=== PATIENT | female | born 1990 | race Caucasian/White ===

== ENCOUNTER 2017-02-25 03:00 | Emergency (ER) | payer SELFPAY ==
[2015-07-13 18:31] VITALS: BMI 24.7
--- NOTE | 2017-02-25 03:53 | OBDCSUM ---
Datetime: 02/25/2017 03:51 Discharged to, Provider: Home Follow up at, Provider: 03/01 Follow up in weeks, Provider: alison Discharge Comment, Provider: c/s schuled on saturday03/01/17 po hyration lbor ins f/u on saturday Discharge Diagnosis Prov Other: 38weeks nst toothace
--- NOTE | 2017-02-25 03:53 | OBHP ---
Datetime: 02/25/2017 03:47 IP Adm Impression: Term, intrauterine IP Chief Complaint Other: c/o toothache and vomiting IP Admit Plan: Discharge home Admit Comment, IP Provider: at 38+weeks came with c/o toothace started 1 wek go got worse tonig ht, pain going to head and neck and vomited x 3.no ctxs, vb, lof,+fm. obhx 1 x c/s pmh den med pnv all nkda psh c/s soch de ve closed a/p at 38+weeks nst/toothace send to er for evaluation c/s schuled on saturday03/01/17 po hyration lbor ins f/u on saturday Pelvic Type - PN: Adequate Extremities - PN: Normal Abdomen - PN: Normal Back - PN: Normal Breast - PN: Normal Lungs - PN: Normal Heart - PN: Normal Thyroid - PN: Normal Neurologic - PN: Normal HEENT - PN: Normal General - PN: Normal FHR - Baseline A Provider: 130 Contraction Comments Provider: occ Vital Signs Provider: Reviewed; Within Normal Limits NICHD Variability Prov Fetus A: Moderate 6-25bpm NICHD Accel Fetus A IP Provider: 15X15 FHR Category Provider Fetus A: Category I Dilatation, Provider: 0 Effacement, Provider: 0 Station, Provider: -3 Genitourinary Exam: Normal DTRs - PN: Normal
[2017-02-25] MEDS ORDERED: Oxycodone/Acetaminophen 5/325 mg Tab PO STA (04:24)
[2017-02-25] MEDS ORDERED: Oxycodone/Acetaminophen 5/325 mg Tab ONE (04:30)
--- NOTE | 2017-02-25 04:30 | C.PDOC ---
History Of Present Illness Pt is 39 weeks presents to ER with c/o of left sided toothache since last night radiating to her left ear. Pt took 1 tylenol PO without relief. Denies headache, dizziness, URI sx, fever, trauma, or recent dental work. Pt denies any OB c/o Time Seen by Provider: 02/25/17 04:17 Chief Complaint (Nursing): Headache History/Exam Limitations: no limitations Onset/Duration Of Symptoms: Persistent Current Symptoms Are (Timing): Still Present Severity: Moderate Preceeding Symptoms: None Past Medical History Vital Signs: Last Vital Signs Temp 98 F 02/25/17 04:03 Pulse 97 H 02/25/17 04:03 Resp 20 02/25/17 04:03 BP 109/75 02/25/17 04:03 Pulse Ox 99 02/25/17 04:42 - Medical History PMH: No Chronic Diseases - [facility] Procedures EXTRACTION OF POC, LOW CERVICAL, OPEN APPROACH (07/13/15) INTRODUCE OF OTH THERAP SUBST INTO FEM REPROD, VIA OPENING (07/13/15) Family History: States: Unknown Family Hx - Social History Hx Alcohol Use: No Hx Substance Use: No Review Of Systems Constitutional: Negative for: Fever ENT: Positive for: Ear Pain (Lt), Other (left lower toothache). Negative for: Throat Pain Respiratory: Negative for: Shortness of Breath Gastrointestinal: Negative for: Abdominal Pain Musculoskeletal: Negative for: Neck Pain Neurological: Negative for: Weakness Physical Exam - Physical Exam Appears: Well, Non-toxic, In Acute Distress (moderate painful distress ) Skin: Normal Color Head: Atraumatic Eye(s): bilateral: Normal Inspection, PERRL Ear(s): Bilateral: Normal Oral Mucosa: Moist Lips: Normal Appearing, No Swelling Teeth: No Caries, Tender To Palpation (Left lower posterior molar, no erythema ) , No Loose Gingiva: Normal Appearing, No Erythema, No Swelling Throat: Normal, No Erythema Neck: Normal, Supple Cardiovascular: Rhythm Regular Respiratory: Normal Breath Sounds Gastrointestinal/Abdominal: Other (gravid, NT) Neurological/Psych: Oriented x3 Gait: Steady ED Course And Treatment O2 Sat by Pulse Oximetry: 99 Pulse Ox Interpretation: Normal Progress Note: Percocet PO given- Pt tolerated pain meds well, VSS. Advised to continue with 2 tabs of tylenol extra strength at home and to follow up with PMD / Ob tomorrow as needed. Pt was seen and cleared previously by pipe connector OB in L&D Reevaluation Time: 04:46 Reassessment Condition: Improved Disposition Counseled Patient/Family Regarding: Diagnosis, Need For Followup - Disposition Referrals: ABATTOIR SUPERVISOR, PMD [Other] Disposition: HOME/ ROUTINE Disposition Time: 04:40 Condition: STABLE Additional Instructions: Continue tylenol extra strenght every 6 hrs Avoid very cold or hot drinls Follow up with your ACCOUNTS RECEIVABLE CLERK Return to ER if fever, facial swelling, severe headache or worse Instructions: Toothache (ED) - Clinical Impression Clinical Impression: Pain, dental, Pain of molar
[2017-02-25 04:52] VITALS: BP 111/80; PULSE 94; RESP 18; TEMP 97.5; O2SAT 100
== END 2017-02-25 04:52 | disposition home or self-care (01) ==
LOC: C.EROB 03:00 → C.ER 03:00
DX: K08.89 Other specified disorders of teeth and supporting structures (principal); O26.893 Other specified pregnancy related conditions, third trimester; Z3A.38 38 weeks gestation of pregnancy

== ENCOUNTER 2017-02-27 12:42 | Inpatient (IN) | payer MEDICAID ==
--- NOTE | 2017-02-27 13:25 | OBHP ---
Datetime: 02/27/2017 13:21 IP Adm Impression: Term, intrauterine Admit Comment, IP Provider: at 38.4weks came with c/o leakge of yellowish discharge from 6 in t he morning x 3 and back pain, no ctxs,vb,+fm. obhx 1 x c/s pmh den med pnv all nkda psh c/s soch de sse neg pooling,neg nitrazine yellowih disc a/p r/o rom pt was told to walk arround with pad. will revalutae Pelvic Type - PN: Adequate Extremities - PN: Normal Abdomen - PN: Normal Back - PN: Normal Breast - PN: Not Done Lungs - PN: Normal Heart - PN: Normal Thyroid - PN: Not Done Neurologic - PN: Normal HEENT - PN: Normal General - PN: Normal FHR - Baseline A Provider: 130 Membranes, Provider: Intact Pool Provider: Negative Nitrazine Provider: Negative EGA AdmitDate IP: 38.4 Vital Signs Provider: Reviewed; Within Normal Limits IP Chief Complaint: Suspected ruptured membranes NICHD Variability Prov Fetus A: Moderate 6-25bpm NICHD Accel Fetus A IP Provider: 15X15 FHR Category Provider Fetus A: Category I Dilatation, Provider: 0 Effacement, Provider: 0 Station, Provider: -3 Genitourinary Exam: Normal DTRs - PN: Normal
[2017-02-27 14:31] VITALS: BMI 28.1
[2017-02-27] MEDS ORDERED: cefOXitin IV 2 gm in Dextrose 2 GM/50 ML BAG IVPB ONE ×2 (14:31→15:32)
[2017-02-27] MEDS ORDERED: Sodium Citrate/Citric Acid 15 ml Sol PO ONE (14:31)
--- NOTE | 2017-02-27 14:37 | OBADHP ---
Datetime: 02/27/2017 13:21 Admit Comment, IP Provider: at 38.4weks came with c/o leakge of yellowish discharge from 6 in t he morning x 3 and back pain, no ctxs,vb,+fm. obhx 1 x c/s pmh den med pnv all nkda psh c/s soch de sse neg pooling,neg nitrazine yellowih disc a/p r/o rom pt was told to walk arround with pad. will revalutae. after revaluate leakage of fluid. plan admit to l_d for repeat c/s npo/ivf labs anthesia aware skin abxs informed consent will be joslyn Pelvic Type - PN: Adequate Extremities - PN: Normal Abdomen - PN: Normal Back - PN: Normal Breast - PN: Not Done Lungs - PN: Normal Heart - PN: Normal Thyroid - PN: Not Done Neurologic - PN: Normal HEENT - PN: Normal General - PN: Normal FHR - Baseline A Provider: 130 Membranes, Provider: Intact Pool Provider: Negative Nitrazine Provider: Negative IP Hx Assessment: The History has been Reviewed and is Current Vital Signs Provider: Reviewed; Within Normal Limits IP Chief Complaint: Suspected ruptured membranes NICHD Variability Prov Fetus A: Moderate 6-25bpm NICHD Accel Fetus A IP Provider: 15X15 FHR Category Provider Fetus A: Category I Dilatation, Provider: 0 Effacement, Provider: 0 Station, Provider: -3 Genitourinary Exam: Normal DTRs - PN: Normal EGA AdmitDate IP: 38.4 IP Adm Impression: Term, intrauterine ; Ruptured Membranes Datetime: 02/25/2017 03:47 IP Chief Complaint Other: c/o toothache and vomiting Contraction Comments Provider: occ IP Admit Plan: Discharge home
--- NOTE | 2017-02-27 14:37 | OBHP ---
Datetime: 02/27/2017 13:21 IP Adm Impression: Term, intrauterine ; Ruptured Membranes Admit Comment, IP Provider: at 38.4weks came with c/o leakge of yellowish discharge from 6 in t he morning x 3 and back pain, no ctxs,vb,+fm. obhx 1 x c/s pmh den med pnv all nkda psh c/s soch de sse neg pooling,neg nitrazine yellowih disc a/p r/o rom pt was told to walk arround with pad. will revalutae. after revaluate leakage of fluid. plan admit to l_d for repeat c/s npo/ivf labs scout aware skin abxs informed consent will be joslyn HOLDEN Hx Assessment: The History has been Reviewed and is Current EGA AdmitDate IP: 38.4
[2017-02-27] MEDS: Lactated Ringer's 1,000 ML IV SCH (15:14)
[2017-02-27 15:22] LABS: BASO % 0.3 % (0.0-2.0); EOS # 0.1 K/uL (0.0-0.7); EOS % 0.5 % (0.0-4.0); HEMATOCRIT 39.1 % (34.0-47.0); LYMPH # 2.3 K/uL (1.0-4.3); LYMPH % 21.7 % (20.0-40.0); MEAN CELL VOLUME 86.1 fL (81.0-99.0); MEAN CORPUSCULAR HEMOGLOBIN 28.8 pg (27.0-31.0); MEAN CORPUSCULAR HGB CONC 33.4 g/dL (33.0-37.0); MEAN PLATELET VOLUME 11.2 fL (7.2-11.7); MONO # 0.5 K/uL (0.0-0.8); MONO % 4.7 % (0.0-10.0); RED CELL DISTRIBUTION WIDTH 13.8 % (11.5-14.5); WHITE BLOOD COUNT 10.6 K/uL (4.8-10.8)
[2017-02-27] MEDS ORDERED: Sodium Citrate/Citric Acid 15 ml Sol ONE (15:30)
[2017-02-27 15:33] LABS: CHLORIDE 103 mmol/L (98-107); POTASSIUM 4.1 mmol/L (3.6-5.2); SODIUM 133 mmol/L (132-148)
[2017-02-27] MEDS ORDERED: Oxytocin 20 units in LR 2,000 ML IV ONE (15:33)
[2017-02-27 15:36] LABS: BLOOD UREA NITROGEN 5 mg/dL (7-17); CARBON DIOXIDE 19 mmol/L (22-30); GFR AFRICAN-AMERICAN > 60; GLUCOSE,RANDOM 71 mg/dL (65-105)
[2017-02-27 15:37] LABS: CALCIUM 9.2 mg/dl (8.6-10.4)
[2017-02-27] MEDS ORDERED: Morphine 1 mg/ml preservative-free Inj(Duramorph) ONE (16:00)
[2017-02-27] MEDS ORDERED: ePHEDrine 50 mg/ml Inj ONE (16:18)
[2017-02-27] MEDS ORDERED: Oxytocin 10 Units/ml Inj ONE (16:23)
--- NOTE | 2017-02-27 16:50 | OBDS ---
DELIVERY PERSONNEL Delivery Doctor: Addy Orellana MD Scrub Nurse: Chanda Akins ELMER Anesthesiologist: ElanaAnthony MD MATERNAL INFORMATION Delivery Anesthesia: Spinal Provider Comments: baby deliverd in geri. end clean tubal liogation done no com LABOR SUMMARY EDC: 03/09/2017 00:00 No. Babies in Womb: 1 Attempted: No Labor Anesthesia: None LABOR INFORMATION Oxytocin: N/A Steroids Given: None Reason Steroids Not Administered: Not Applicable STAGES OF LABOR Stage 3 hrs: 0 Stage 3 min: 1 BABY A INFORMATION Infant Delivery Date/Time: 02/27/2017 16:19 Method of Delivery: Born in Route : No : N/A Forceps: N/A Vacuum Extraction: N/A Shoulder Dystocia : No SHOULDER DYSTOCIA BABY A Infant Delivery Date/Time: 02/27/2017 16:19 PRESENTATION/POSITION BABY A Presentation: Cephalic Cephalic Presentation: Vertex Vertex Position: Left Occipital Anterior Breech Presentation: N/A PLACENTA INFORMATION BABY A Placenta Delivery Time : 02/27/2017 16:20 Placenta Method of Delivery: Manual Removal Placenta Status: Delivered INFORMATION BABY A Gestational Age at Delivery: 38.4 Gestational Status: Term Infant Outcome : Liveborn Infant Condition : Stable Sex: Male IDENTIFICATION/MEDS BABY A ID Band Number: [id number] ID Band Location: Left Leg; Left Arm Sensor Applied: Yes Sensor Number: [id number] Sensor Location : Cord Clamp Vitamin K Given : Not Given Erythromycin Given: Not Given WEIGHT/LENGTH BABY A Birthweight (gms): 3200 Infant Weight (lb): 7 Weight (oz): 1 Infant Length Inches: 19.00 Infant Length cms: 48.3 CORD INFORMATION BABY A No. Cord Vessels: 3 Nuchal Cord : Around Neck x1, Loose Infant Suction: Mouth; Nose ASSESSMENT BABY A Complications: None Physical Findings Other: epispadios Infant Respirations: Appears Normal Drop Man/ALS Called : No Infant Care By: Clint Johns RN, Dr Moe Transferred To: Remains with Mother
[2017-02-27] MEDS ORDERED: DiphenhydrAMINE 50 mg/ml Inj IVP PRN (17:04)
--- NOTE | 2017-02-27 17:26 | PCM.SURG1 ---
Surgeon's Initial Post Op Note - Surgeon's Notes Surgeon: dr randall Director Of Clinical Applications: dr toledo Type of Anesthesia: Spinal Anesthesia Administered By: dr menendez Pre-Operative Diagnosis: 27 yr at 38+weeks/prom Operative Findings: repeat section and btl Post-Operative Diagnosis: same Operation Performed: repeat section abd btl Specimen/Specimens Removed: fetus. placeta. cord blood Estimated Blood Loss: EBL {In ML}: 800 Blood Products Given: N/A Drains Used: No Drains Post-Op Condition: Good Date of Surgery/Procedure: 02/27/17 Time of Surgery/Procedure: 17:30
--- NOTE | 2017-02-27 21:30 | OP ---
PROCEDURE DATE: 02/27/2017 PREOPERATIVE DIAGNOSES: A 27-year-old 2, para 1 at 38+ weeks with a previous sectio n, premature rupture of membranes. POSTOPERATIVE DIAGNOSES: A 27-year-old 2, para 1 at 38+ weeks with a previous secti on, premature rupture of membranes. SURGEON: Addy Orellana MD GRAIN DRIER OPERATOR SURGEON: Dr. Welch, who was present throughout the surgery for retraction, exposure, pushin g at the time of the delivery and helping with the tubal ligation. ANESTHESIA: Spinal. ANESTHESIOLOGIST: Dr. Huitron. ESTIMATED BLOOD LOSS: 800. PROCEDURE PERFORMED: Repeat section and bilateral tubal ligation. COMPLICATIONS: None. PROCEDURE: After informed consent was obtained, the patient was brought to the operating room, place d on the table where spinal anesthesia was given. When anesthesia was found to be adequate, she was prepped and draped in a normal sterile fashion. Examination after that, at the site of the previous skin incision an incision was made with a knife, the subcutaneous with a Bovie. The fascia was exten ded on both sides using curved Waddell scissors. Now, the rectus muscle was . There were adhe sions, which was coming from the anterior peritoneum to the anterior of the uterus, which was t aken out with Metzenbaum scissors. After that, a bladder blade was placed and bladder flap was creat ed. A lower uterine segment incision was made with a knife, extended on both sides using curved scis sors. The baby was delivered in RAFAEL position. Cord was around the neck, it was reduced. The c ord was clamped and cut, and the baby was handed to the awaiting microfilmer. After that, the place nta was delivered manually and sent to pathology. The uterus was exteriorized and the uterus was clara ared of all the clots and debris. The uterus was a little boggy so Methergine was given at 20 units and extra Pitocin was given. After that, the incision was closed using 1-0 Vicryl in a fashion . After that incision, the decision was to do a tubal ligation. Both the tubes with the fimbriae we re visualized. A modified Ross technique was done to take out the tubes. After that, the uterus was returned back to the abdominal cavity. The tubes were looked back again; it was hemostatic with no bleeding. The incision was looked back, and it was hemostatic. The peritoneum was closed using 2 -0 Vicryl in a nonlocking fashion. The muscle was closed using 2-0 Vicryl in a nonlocking fashion. The fascia was closed using 1-0 Vicryl in a nonlocking fashion. The subcutaneous was closed using 0 Vicryl in an interrupted fashion and skin was closed using chen. The patient tolerated the proced ure well. Laps and instrument counts correct x 2. Addy Orellana MD cc: [id number] TT: 02/27/2017 21:30:17 dn
[2017-02-28] MEDS: Lactated Ringer's 1,000 ML IV SCH (02:00)
[2017-02-28 08:12] LABS: HEMATOCRIT 34.1 % (34.0-47.0); MEAN CELL VOLUME 87.2 fL (81.0-99.0); MEAN CORPUSCULAR HEMOGLOBIN 28.8 pg (27.0-31.0); MEAN CORPUSCULAR HGB CONC 33.1 g/dL (33.0-37.0); MEAN PLATELET VOLUME 10.3 fL (7.2-11.7); RED CELL DISTRIBUTION WIDTH 14.1 % (11.5-14.5); WHITE BLOOD COUNT 8.7 K/uL (4.8-10.8)
--- NOTE | 2017-02-28 08:23 | OBPPN ---
Datetime: 02/28/2017 08:20 PP Pain Prov: Within normal limits PP Nausea Prov: Denies PP Flatus Prov: No PP BM Prov: No PP Heart Prov: Normal PP Lungs Prov: Normal PP Abdomen/Uterus Prov: Normal PP Lochia Prov: Normal PP CVA Tenderness Prov: Normal PP Extremities Prov: Normal PP C/S Incision Prov: Normal PP Progress Prov: Normal PP Impression Prov: Normal progression PP Plan Prov: Continue present management PP Progress Note Prov: S-patient reports that she has adequate pain control.tolerating clears.denies nausea, vomiting, headace, chest pain, shortness of breath, numbness or tingling in hands and feet O-VSS Afebrile Fundus firm and at umbilcius dressing clean dry and intact Extremities no calf tenderness A/P Patient s/p csection pod 1 doing well -advance diet -encourage ambulation and po fluid intake -encourage IS use -follow up am cbc -monitor closely Vital Signs Provider PP: Reviewed; Within Normal Limits
[2017-02-28] MEDS: Oxycodone/Acetaminophen 5/325 mg Tab PO PRN ×3 (09:06→23:05)
[2017-02-28] MEDS ORDERED: Bisacodyl 5mg EC Tab PO ONE ×2 (16:15→18:00)
[2017-03-01] MEDS: Oxycodone/Acetaminophen 5/325 mg Tab PO PRN ×4 (06:20→23:46)
--- NOTE | 2017-03-01 13:55 | OBPPN ---
Datetime: 03/01/2017 13:52 PP Pain Prov: Within normal limits PP Nausea Prov: Denies PP Flatus Prov: Yes PP Breasts Prov: Normal PP Heart Prov: Normal PP Lungs Prov: Normal PP Abdomen/Uterus Prov: Normal PP Lochia Prov: Normal PP Vulva/Perineum Prov: Normal PP CVA Tenderness Prov: Normal PP Extremities Prov: Normal PP C/S Incision Prov: Normal PP Comments Phys Exam Prov: Abd: Soft, NT, BS- present UT- Firm, NT Incision: Clean and dry PP Impression Prov: Normal progression PP Plan Prov: Continue present management PP Progress Note Prov: s/p Delivery, POD#2 CLinically Stable. Plan: COntinue care. Encourage ambulation. Vital Signs Provider PP: Reviewed; Within Normal Limits
[2017-03-02] MEDS: Oxycodone/Acetaminophen 5/325 mg Tab PO PRN (07:25)
--- NOTE | 2017-03-02 07:27 | OBPPN ---
Datetime: 03/02/2017 07:24 PP Pain Prov: Within normal limits PP Nausea Prov: Denies PP Flatus Prov: Yes PP Breasts Prov: Normal PP Heart Prov: Normal PP Lungs Prov: Normal PP Abdomen/Uterus Prov: Normal PP Lochia Prov: Normal PP Vulva/Perineum Prov: Normal PP CVA Tenderness Prov: Normal PP Extremities Prov: Normal PP Progress Prov: Normal PP Comments Phys Exam Prov: Abd: Soft,NT,BS- present UT- Firm Incision: Clean and dry PP Impression Prov: Normal progression PP Progress Note Prov: S/P Section, POD #3 Clinically Stable. Plan: D/c Home.
--- NOTE | 2017-03-02 07:29 | OBDCSUM ---
Datetime: 03/02/2017 07:26 Discharged to, Provider: Home Follow up at, Provider: [facility] Disch Instr Activity: Normal activity Disch Instr Diet: Regular Discharge Instructions, Provider: Routine instructions given Discharge Diagnosis, Provider: Term Delivered Discharge Time: 03/02/2017 07:26 Follow up in weeks, Provider: 2 weeks Disch Referrals: None Contraception discussed, Prov: Yes Discharge Comment, Provider: S/P Uncomplicated Section, Clinically Stable Discharge Diagnosis Prov Other: S/P Uncomplicated Section, Clinically Stable
[2017-03-02 08:06] VITALS: BP 109/72; PULSE 75; RESP 18; TEMP 97.5; O2SAT 99
== END 2017-03-02 12:30 | disposition home or self-care (01) | DRG 766 ==
LOC: C.EROB 12:42 → C.4D 14:33 → C.4M 20:25
PROVIDERS: ADMIT Obstetrics & Gynecology; ATTEND Obstetrics & Gynecology
PROC: 10D00Z1 Extraction of Products of Conception, Low, Open Approach (ICD-10-PCS; principal; 2017-02-27)
PROC: 0UB70ZZ Excision of Bilateral Fallopian Tubes, Open Approach (ICD-10-PCS; 2017-02-27)
PROC: 3E033VJ Introduction of Other Hormone into Peripheral Vein, Percutaneous Approach (ICD-10-PCS; 2017-02-27)
DX: O34.211 Maternal care for low transverse scar from previous cesarean delivery (principal); O42.92 Full-term premature rupture of membranes, unspecified as to length of time between rupture and onset of labor; O69.81X0 Labor and delivery complicated by cord around neck, without compression, not applicable or unspecified; Z3A.38 38 weeks gestation of pregnancy; Z37.0 Single live birth; Z30.2 Encounter for sterilization

== ENCOUNTER 2017-05-13 10:34 | Emergency (ER) | payer MEDICAID, OTHER ==
[2017-05-13 10:35] VITALS: BMI 28.1
[2017-05-13] MEDS ORDERED: Sodium Chloride 0.9% 1,000 ML IV ONE (11:33)
[2017-05-13 12:14] LABS: BASO % 0.5 % (0.0-2.0); EOS # 0.1 K/uL (0.0-0.7); EOS % 1.9 % (0.0-4.0); HEMATOCRIT 37.3 % (34.0-47.0); LYMPH # 1.5 K/uL (1.0-4.3); LYMPH % 21.6 % (20.0-40.0); MEAN CELL VOLUME 85.3 fL (81.0-99.0); MEAN CORPUSCULAR HEMOGLOBIN 28.5 pg (27.0-31.0); MEAN CORPUSCULAR HGB CONC 33.4 g/dL (33.0-37.0); MEAN PLATELET VOLUME 9.4 fL (7.2-11.7); MONO # 0.3 K/uL (0.0-0.8); MONO % 4.4 % (0.0-10.0); NRBC % 0.1 % (0.0-2.0); RED CELL DISTRIBUTION WIDTH 12.3 % (11.5-14.5); WHITE BLOOD COUNT 7.1 K/uL (4.8-10.8)
[2017-05-13 12:25] LABS: CHLORIDE 103 mmol/L (98-107); POTASSIUM 4.7 mmol/L (3.6-5.2); SODIUM 140 mmol/L (132-148); URINE BILIRUBIN NEGATIVE (NEGATIVE); URINE BLOOD 3+ (NEGATIVE); URINE COLOR Red (YELLOW); URINE GLUCOSE (UA) 1+ mg/dL (Normal); URINE KETONE NEGATIVE (NEGATIVE); URINE LEUKOCYTE ESTERASE NEG Leu/uL (Negative); URINE PROTEIN 2+ mg/dL (NEGATIVE); URINE UROBILINOGEN NORMAL mg/dL (0.2-1.0)
[2017-05-13 12:27] LABS: GFR AFRICAN-AMERICAN > 60
[2017-05-13 12:28] LABS: ALB/GLOB RATIO 1.1 (1.0-2.1); ALKALINE PHOSPHATASE 96 U/L (38-126); ALT/SGPT 40 U/L (9-52); AST/SGOT 26 U/L (14-36); BILIRUBIN,TOTAL 0.7 mg/dL (0.2-1.3); BLOOD UREA NITROGEN 6 mg/dL (7-17); CARBON DIOXIDE 25 mmol/L (22-30); GLUCOSE,RANDOM 95 mg/dL (65-105); RBC URINE 620 /hpf (0-3); TOTAL PROTEIN 7.7 g/dL (6.3-8.3); URINE BACTERIA FEW (<OCC)
[2017-05-13 12:29] LABS: CALCIUM 9.7 mg/dl (8.6-10.4); WBC URINE 12 /hpf (0-5)
--- NOTE | 2017-05-13 12:29 | C.PDOC ---
History Of Present Illness 27 yr old female presents to the ER with complaints of lower cramping abdominal pain for 2 days. Patient also reports of vaginal bleeding, heavier today. Patient states this is her first period after giving 2 months ago via c- section. Also has history chronic constipation. Denies fever, chest pain, SOB, nausea, vomiting, dysuria, weakness or numbness. Time Seen by Provider: 05/13/17 11:25 Chief Complaint (Nursing): Abdominal Pain History Per: Patient History/Exam Limitations: no limitations Onset/Duration Of Symptoms: Days (2) Location Of Pain/Discomfort: Suprapubic Quality Of Discomfort: Cramping, "Pain" Associated Symptoms: Other (vaginal bleed) Last Bowel Movement: Yesterday Abnormal Vaginal Bleeding: Yes Past Medical History Reviewed: Historical Data, Nursing Documentation, Vital Signs Vital Signs: Last Vital Signs Temp 98.1 F 05/13/17 13:01 Pulse 67 05/13/17 13:01 Resp 18 05/13/17 13:01 BP 106/71 05/13/17 13:01 Pulse Ox 97 05/13/17 16:45 - Medical History PMH: No Chronic Diseases Surgical History: - [facility] Procedures EXCISION OF BILATERAL FALLOPIAN TUBES, OPEN APPROACH (02/27/17) EXTRACTION OF POC, LOW CERVICAL, OPEN APPROACH (02/27/17) INTRODUCE OF OTH THERAP SUBST INTO FEM REPROD, VIA OPENING (07/13/15) INTRODUCTION OF OTH HORMONE INTO PERIPH VEIN, PERC APPROACH (02/27/17) Family History: States: No Known Family Hx - Social History Hx Alcohol Use: No Hx Substance Use: No Review Of Systems Except As Marked, All Systems Reviewed And Found Negative. Constitutional: Negative for: Fever Cardiovascular: Negative for: Chest Pain Respiratory: Negative for: Shortness of Breath Gastrointestinal: Positive for: Abdominal Pain (Cramping lower abdominal pain ) , Constipation (Chronic). Negative for: Nausea, Vomiting Genitourinary: Positive for: Vaginal Bleeding. Negative for: Dysuria Neurological: Negative for: Weakness, Numbness Physical Exam - Physical Exam Appears: Non-toxic, No Acute Distress Skin: Normal Color, Warm, Dry Head: Atraumatic, Normacephalic Eye(s): bilateral: Normal Inspection, EOMI Oral Mucosa: Moist Neck: Normal ROM Chest: Symmetrical, No Tenderness Cardiovascular: Rhythm Regular, No Murmur Respiratory: Normal Breath Sounds, No Rales, No Rhonchi, No Wheezing Gastrointestinal/Abdominal: Bowel Sounds, Soft, Tenderness (Suprapubic ), No Mass, No Distention, No Guarding, No Rebound Back: Normal Inspection, No CVA Tenderness Extremity: Normal ROM, No Tenderness, No Pedal Edema, No Calf Tenderness, No Deformity, No Swelling Neurological/Psych: Oriented x3, Normal Speech, Normal Motor Gait: Steady ED Course And Treatment - Laboratory Results Result Diagrams: 05/13/17 12:05 05/13/17 12:05 Lab Interpretation: No Acute Changes O2 Sat by Pulse Oximetry: 97 (RA ) Pulse Ox Interpretation: Normal Medical Decision Making Medical Decision Making: IMPRESSION: Vaginal bleeding and cramps Prior records reviewed: patient last seen and admitted on 02/27/17 for delivery via PLAN: * CBC * CMP * HCG * Urinalysis * Toradol IVP * Sodium Chloride IV Progress: Labs reviewed and unremarkable; normal stable H/H. negative . all other WNL Patient reevaluated and was seated comfortable in no distress. She reports pain has improved. I explained results, and bleeding is likely menses and can take any analgesic for pain and to follow up with farmworker machine. Disposition - Disposition [facility] Disposition: HOME/ ROUTINE Disposition Time: 12:39 Condition: STABLE Additional Instructions: Follow up with your primary medical doctor or clinic in 2-5 days for further evaluation. Take naproxen for any pain. Return to the emergency department at any time if symptoms persist or worsen. 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 - Scribe Statement The provider has reviewed the documentation as recorded by the Scribe Nancie Workman All medical record entries made by the Scribe were at my direction and personally dictated by me. I have reviewed the chart and agree that the record accurately reflects my personal performance of the history, physical exam, medical decision making, and the department course for this patient. I have also personally directed, reviewed, and agree with the discharge instructions and disposition.
[2017-05-13 13:02] VITALS: BP 106/71; PULSE 67; RESP 18; TEMP 98.1
[2017-05-13 16:45] VITALS: O2SAT 97
== END 2017-05-13 13:02 | disposition home or self-care (01) ==
LOC: C.ER 10:34
DX: N94.6 Dysmenorrhea, unspecified (principal)
CPT/HCPCS: 80053; 81001; 84703; 85025; 96361; 96374; 99285; J1885; J7040